=== PATIENT | male | born 2000 | race Caucasian/White ===

== ENCOUNTER 2024-01-09 15:00 | Emergency (ER) | payer MEDICAID ==
[~2024-01-09] VITALS: Ht 175.3 cm; Wt 95.0 kg
[~2024-01-09 15:00] MED LIST: ACET650S25 PO; AMOX-494 MT
[2024-01-09 15:05] VITALS: BP 128/75; PULSE 109; RESP 18; TEMP 98.2; O2SAT 100; O2SAT 99
== END 2024-01-09 18:30 | disposition home or self-care (01) ==
LOC: ER 15:00
DX: S81.001A Unspecified open wound, right knee, initial encounter (principal); X58.XXXA Exposure to other specified factors, initial encounter; Y93.89 Activity, other specified; Y92.89 Other specified places as the place of occurrence of the external cause; Y99.8 Other external cause status
CPT/HCPCS: 99281